=== PATIENT | male | born 1980 | race Two or more races ===

== ENCOUNTER 2022-09-18 09:32 | Emergency (ER) | payer MEDICAID ==
[2022-09-18] MEDS ORDERED: Bacitracin Oint 1 GM U/D Packet TOP ONE (09:53)
== END 2022-09-18 10:23 | disposition home or self-care (01) ==
LOC: JP.ED 09:32
DX: S81.812A Laceration without foreign body, left lower leg, initial encounter (principal); Z88.0 Allergy status to penicillin; V86.56XA Driver of dirt bike or motor/cross bike injured in nontraffic accident, initial encounter
CPT/HCPCS: 99282

== ENCOUNTER 2022-10-21 13:04 | Emergency (ER) | payer OTHER, MEDICAID ==
[2022-10-21] MEDS ORDERED: Iopamidol 612 MG/ML 100 ML Bottle IV SCH (13:15)
[2022-10-21] MEDS ORDERED: Sodium Chloride 0.9% 50 ML IV SCH (13:15)
[2022-10-21 13:17] LABS: BASOPHILS ABSOLUTE AUTO 0.07 K/uL (0.00-0.10); BASOPHILS PERCENT AUTO 0.4 % (0.1-1.3); EOSINOPHILS ABSOLUTE AUTO 0.81 K/uL (0.00-0.40); EOSINOPHILS PERCENT AUTO 4.2 % (0.0-5.4); HEMATOCRIT 38.7 % (38.4-49.7); HEMOGLOBIN 13.7 g/dL (12.9-16.9); IMMATURE GRAN ABSOLUTE AUTO 0.18 K/uL (0.00-0.23); IMMATURE GRAN PERCENT AUTO 0.9 % (0.0-0.7); LYMPHOCYTES ABSOLUTE AUTO 2.73 K/uL (0.8-3.3); LYMPHOCYTES PERCENT AUTO 14.2 % (11.4-47.7); MEAN CORPUSCULAR HGB CONC 35.4 g/dL (31.6-35.5); MEAN CORPUSCULAR VOLUME 87.6 fL (81.4-99.0); MONOCYTES ABSOLUTE AUTO 0.75 K/uL (0.20-0.90); MONOCYTES PERCENT AUTO 3.9 % (3.3-12.6); NEUTROPHILS ABSOLUTE AUTO 14.62 K/uL (1.0-7.6); NEUTROPHILS PERCENT AUTO 76.4 % (40.0-78.1); PLATELET COUNT,PLT 227 K/uL (130-375); RED BLOOD CELL COUNT 4.42 M/uL (4.14-5.76); WHITE BLOOD CELL COUNT,WBC 19.2 K/uL (3.2-11.0)
[2022-10-21 13:32] LABS: CALCIUM 8.3 mg/dL (8.5-10.1); CREATININE 1.1 mg/dL (0.8-1.3); EST CRCL DRUG DOSING (CG) 94.13 mL/min; POTASSIUM,K 3.3 mmol/L (3.6-5.2)
[2022-10-21 13:33] LABS: ANION GAP 11.3 mmol/L (5.0-14.0)
[2022-10-21] MEDS ORDERED: Midazolam 1 MG/ML 5 ML SDV IVPUSH ONE (14:21)
[2022-10-21] MEDS ORDERED: fentaNYL 100 MCG/2 ML SDV IVPUSH ONE (15:06)
[2022-10-21] MEDS ORDERED: Naloxone 0.4 MG/ML SDV IVPUSH PRN (15:06)
[2022-10-21] MEDS ORDERED: HYDROmorphone 0.5 MG/0.5 ML Syringe IVPUSH ONE (17:13)
== END 2022-10-21 17:46 ==
LOC: JP.ED 13:04
DX: J93.9 Pneumothorax, unspecified (principal); E03.9 Hypothyroidism, unspecified; Z79.899 Other long term (current) drug therapy; Z88.0 Allergy status to penicillin; V86.55XA Driver of 3- or 4- wheeled all-terrain vehicle (ATV) injured in nontraffic accident, initial encounter
CPT/HCPCS: 32556; 36415; 71045; 71260; 74177; 80048; 85025; 96374; 99283; 99285; J1170; J2250; J3010; J3490; Q9967